=== PATIENT | female | born 1980 | race Caucasian/White ===

== ENCOUNTER 2020-12-11 04:50 | Emergency (ER) | payer SELFPAY ==
--- NOTE | 2020-12-11 05:55 | NUR ---
CALLED FOR TRIAGE, NO ANSWER
--- NOTE | 2020-12-11 06:08 | NUR ---
CALLED FOR [place], NO RESPONSE
--- NOTE | 2020-12-11 06:12 | NUR ---
CALLED FOR TRIAGE. NO ANSWER
== END 2020-12-11 06:14 | disposition left against medical advice (07) ==
LOC: ER 04:50
DX: Z53.21 Procedure and treatment not carried out due to patient leaving prior to being seen by health care provider (principal)